=== PATIENT | female | born 1945 | race Two or more races ===

== ENCOUNTER 2017-01-03 16:24 | Inpatient (IN) | payer OTHER ==
[~2017-01-03] VITALS: Ht 160 cm; Wt 63.0 kg
--- NOTE | ~2017-01-03 | EKG ---
PATIENT: SHANDA HENSON UNIT #: [id number] Ventricular Rate: 93 BPM Atrial Rate: 101 BPM QRS Duration: 142 ms Q-T Interval: 388 ms QTC Calculation(Bezet): 482 ms Calculated R Roosevelt: 72 degrees Calculated T Roosevelt: -53 degrees Diagnosis Line: Atrial fibrillation Diagnosis Line: Right bundle branch block Diagnosis Line: T wave abnormality, consider inferior ischemia or Diagnosis Line: digitalis effect Diagnosis Line: Abnormal ECG Diagnosis Line: No previous ECGs available Diagnosis Line: Confirmed by TAYLOR HARRIS MD ([id number]) on 01/07/2017 Diagnosis Line: 10:49:31 PM INTERPRETING MD: STEVEN NOVOA
--- NOTE | ~2017-01-03 | TH ---
Unit #: [id number] #: [id number] Patient: SHANDA HENSON [id number] [address] [id number] I MR#: [id number] NAME: SHANDA HENSON : 1945 SEX: F STUDY DATE/TIME: 01/06/2017 UNIT: [facility] ROOM: 565 STUDY DESCRIPTION: Attending Physician: Raymundo Dubois M.D. Primary Care Physician: Bakari Cook M.D. CARDIOLOGY REPORT EXAM Lexiscan Cardiolite stress test, nuclear portion. PROCEDURE Using technetium 99m labeled Cardiolite, rest and stress SPECT images were obtained. Multiple SPECT images were obtained in various views including horizontal and vertical long axis and short axis views of the left ventricle. Images were obtained by gated SPECT method. The patient was administered 10.74 mCi of Cardiolite at rest. The patient was administered 34.3 mCi of Cardiolite after Lexiscan infusion was completed. On the stress images, there is normal perfusion noted. The rest images show normal perfusion. Comparing rest and stress images, there is no stress-induced ischemia noted. The left ventricular ejection fraction is calculated to be 54%. There is no focal wall motion abnormality seen. CONCLUSION 1. No stress-induced ischemia noted. 2. The left ventricular ejection fraction is calculated to be 54%. 3. There is no focal wall motion abnormality seen. 4. Normal Lexiscan Cardiolite stress test. Dictated by... Kolby Fitzgerald TD: 01/06/2017 15:29 JOB #: [id number] CARDIOLOGY REPORT Page 1 of 1 X Kelsea Avina MD <ELECTRONICALLY SIGNED> 02/20/17 1524 CARDIOLOGY REPORT
--- NOTE | ~2017-01-03 | CR72 ---
[facility] A Service of [facility] RADIOLOGY TEXT RESULTS PATIENT: SHANDA HENSON LOCATION: [facility] 565-01 : 43 UNIT #: [id number] AGE: [address]: Raymundo Dubois MD SEX: F ORDER DR: [id number] [facility] [address] [place], [place] [address] [id number] I MR#: [id number] Acc #: [id number] NAME: SHANDA HENSON : 1945 SEX: F STUDY DATE/TIME: 01/03/2017 UNIT: [facility] ROOM: [facility] STUDY DESCRIPTION: CR Chest Single View Portable Attending Physician: Ollie Freitas M.D. Ordering Physician: Hannah Badillo M.D. Primary Care Physician: Bakari Cook M.D. MEDICAL IMAGING REPORT This report is preliminary unless electronic signature is present EXAM Portable chest 01/03/17 at 17:53 INDICATIONS Shortness of air, cough and chest pain that started 2.5 weeks ago. History of hypertension. TECHNIQUE AP portable chest compared with 01/03/2017 at 13:28 hours. FINDINGS Left subclavian vascular stent remains in place. Cardiomegaly stable. There is some continued mild vascular congestion. The lungs remain clear. No pneumothorax. IMPRESSION Stable cardiomegaly with mild vascular congestion. No change from earlier today. Dictated by... Jw Dias Jr., M.D. THIS IS AN ELECTRONICALLY VERIFIED REPORT Jw Dias Jr., M.D. at 01/04/2017 4:12 PM BRUCE/justin TD: 01/03/2017 23:28 JOB #: [id number] MEDICAL IMAGING REPORT Page 1 of 1 COPY
--- NOTE | ~2017-01-03 | ST ---
Unit #: [id number] #: [id number] Patient: SHANDA HENSON [id number] [facility]. [place] [address] [facility]. [place], [place] [address] [id number] I MR#: [id number] NAME: SHANDA HENSON : 1945 SEX: F STUDY DATE/TIME: 01/06/2017 UNIT: [facility] ROOM: 565 STUDY DESCRIPTION: Attending Physician: Raymundo Dubois M.D. Primary Care Physician: Bakari Cook M.D. CARDIOLOGY REPORT EXAM Lexiscan Cardiolite stress test. FINDINGS Baseline EKG: Atrial fibrillation with controlled ventricular rate 93 beats per minute with a right bundle branch block, poor R-wave progression, some nonspecific ST-T wave abnormalities. PROCEDURE Cardiolite is a 4-minute test with Lexiscan being injected within the first minute. EKG during the test was equivocal to baseline. It did show a rare PVC. Maximum heart rate response was 121 beats per minute with a maximum blood pressure response of 125/75 mmHg. Patient had no complaints of chest pain, palpitations, or dizziness. Had increased shortness of breath and fatigueness which resolved in recovery phase. Cardiolite was injected after Lexiscan within the first minute of the test. Radionuclide test pending. Please correlate with nuclear images. Dictated by... Joy Durant A.P.R.N. for Kolby Fitzgerald/rica TD: 01/06/2017 10:11 JOB #: [id number] CARDIOLOGY REPORT Page 1 of 1 X Joy Durant APRN CARDIOLOGY REPORT
--- NOTE | ~2017-01-03 | CO ---
Unit #: [id number] #: [id number] Patient: MARY HENSON [id number] [id number] [facility]. [place], [place] [address] [id number] I MR#: [id number] NAME: MARY HENSON ROOM: 565 Age: 71 Sex: F Admission Date: 01/03/2017 : 1945 Attending Physician: Raymundo Dubois M.D. Primary Care Physician: Bakari Cook M.D. Consultation Date: 01/04/2017 CONSULTATION REPORT REASON FOR CONSULTATION Management of the atrial fibrillation with rapid ventricular response, chest pain, and congestive heart failure. HISTORY OF PRESENT ILLNESS This is a 71-year-old female from [facility], who is on end-stage renal disease, on hemodialysis. She is a diabetic, hypertension and hyperlipidemia, history of anemia, glaucoma, previous stroke about 4 years ago and also admits to being told she had irregular heartbeats sometime. The patient came into the emergency room after instructed by Dr. Cook, her PCP for worsening shortness of breath, cough, generalized malaise, and fatigue. The patient has been back from the [facility] 3 weeks. She visited family over there and was there for about 3 weeks. She was sent to [facility] last weekend for chest congestion and persistent cough. She says she cannot stop coughing. She says she may have occasional fever and chills, but on her initial return from home, she did have some vomiting and diarrhea, but she said that has been gone for over a week. She has some chest tightness when she coughs, because she has bronchospasms. She denies any chest pain radiates into her neck, bilateral jaws, shoulders, arms or elbow. She does have occasional palpitations, but no dizziness, presyncope, or syncope. She says she does not have to sleep up in a chair. She can sleep in a bed with two pillows. According to the patient, she went to see Dr. Cook yesterday to follow up in the clinic, but she says she does not feel any better from the treatment [facility]. She said that he did a chest x-ray and sent her home and after he seeing the chest x-ray, he wanted to put her in the hospital. The chest x-ray showed some mild vascular congestion, cardiomegaly, left subclavian vascular stent is in place and the lungs are clear. No pneumothorax. As far as her heart, the patient says she may have had a stress test a few years ago and told it was normal. As far as now, she does not have any heart problems except she said she thought Dr. Cook knew she had heartbeat a few years ago, but she has never been on any blood thinner to her knowledge. PAST MEDICAL HISTORY 1. End-stage renal disease, on hemodialysis. 2. Diabetes mellitus, type 2. 3. Hypertension. 4. Hyperlipidemia. 5. History of anemia. 6. Glaucoma. 7. History of stroke 4 years ago with minimal residual. 8. Reports that she may have paroxysmal atrial fibrillation in the past, Unit #: [id number] #: [id number] Patient: MARY HENSON but she has never been on a blood thinner. 9. Stress test according to the patient a few years back and told was normal. PAST SURGICAL HISTORY 1. Surgery on her left eye for glaucoma. 2. Fistula placed in her right arm. 3. Left brachiocephalic stent. HOME MEDICATIONS Lantus 16 units subcu at bedtime, Humalog 4 units subcu with meals, Xalatan one drop right eye at bedtime, dosage and frequency unavailable, Cozaar 100 mg p.o. daily, metoprolol 50 mg p.o. b.i.d., amlodipine 10 mg p.o. daily, simvastatin 40 mg p.o. daily, Lasix 40 mg p.o. daily, prednisone 5 mg every other day, Sensipar 60 mg p.o. daily, guaifenesin with dextromethorphan t.i.d. p.r.n. for cough. ALLERGIES No known drug allergies. SOCIAL HISTORY The patient lives with her daughter. She denies tobacco, alcohol, or illicit drug abuse. She ambulates with a cane. FAMILY HISTORY Noncontributory. REVIEW OF SYSTEMS See details in HPI. PHYSICAL EXAMINATION GENERAL: Ms. Mary Henson is a 71-year-old female, in no acute respiratory distress. She does have a thick persistent cough. VITAL SIGNS: Blood pressure is currently 136/72, heart rate is 102, respirations 18, temperature 97.6, O2 sats 97% to 100% on 2 L. NECK: Trachea is midline. No thyromegaly or lymphadenopathy. Normal carotid upstrokes. No jugular venous distention. HEART: S1 and S2. Irregular rate and rhythm. Soft systolic murmur at the left sternal border. LUNGS: Diminished in the bases with scattered rhonchi in upper airways. ABDOMEN: Slightly obese, soft, nontender. EXTREMITIES: Pedal pulses are palpable. No pedal edema. DIAGNOSTIC STUDIES LABORATORY RESULTS: Glucose is 231, BUN 45, creatinine 6.6, eGFR is 5.7. Sodium 139, potassium 3.7, chloride 98, CO2 of 29, calcium is 8.1, total protein 7.6, albumin 3.6, bilirubin total is 0.5. AST 19, ALT 25, alkaline phosphatase is 452. BNP is 3197. WBC is 9.0, hemoglobin 10.7, hematocrit 33.3, platelets is 277. Initial cardiac enzymes; CK-MB is 1.3, troponin less than 0.03. CK-MB is 1.3, troponin less than 0.03. INR is 1.4. IMAGING STUDIES: Chest x-ray shows cardiomegaly and suspected mild vascular congestion. CT of the chest with contrast shows no pulmonary embolism. Lungs are clear. 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 CARDIOVASCULAR STUDIES: EKG shows atrial fibrillation with rapid ventricular response with a right bundle-branch block, and nonspecific ST-T wave abnormalities in inferolateral leads. T-wave inversion in inferior and anterior leads. IMPRESSION 1. Atrial fibrillation with rapid ventricular response questionable onset. 2. Acute bronchitis, upper respiratory infection. 3. Acute diastolic heart failure, fluid overload. 4. End-stage renal disease, on hemodialysis. 5. Diabetes mellitus, type 2. 6. Hypertension. 7. Hyperlipidemia. 8. History of anemia. 9. Previous stroke. 10. Stress test few years ago. According to the patient, told was normal. 11. Glaucoma. 12. Nonsmoker. PLAN 1. Cardiology consult to assist with evaluation and management. 2. The patient's heart rate is fluctuating, but staying mostly in the 90s and low 100s. We will increase her metoprolol to 75 mg p.o. b.i.d. Monitor blood pressure and heart rate closely and make any adjustments needed. 3. Obtain a fasting lipid profile and TSH and evaluate. 4. Obtain a 2D echo to evaluate LV function and valves. I do not have any documentation of the echo. We will try to obtain records from [facility] when she had her stroke to see if she was in atrial fibrillation at that time. 5. Continue the patient on aspirin and also we will put on Lovenox 1 mg/kg subcu daily that is the therapeutic dose. 6. The patient will need ischemic heart disease workup at sometime maybe after her symptoms improved. 7. Hospitalist is managing her upper respiratory infection. She is going to get nebulizer treatments along with some IV steroids and cough medication. 8. On exam, there are no signs or symptoms. She did have some chest tightness, so there is no indication of any angina. She does not appear to be on any acute congestive heart failure, even though her BNP is elevated. The patient will have dialysis today. 9. To remove the fluid overload. 10. Further recommendations pending per Dr. Avina. 11. She ambulates with a cane. She thinks she does a lot for age. Quit smoking. Thank you very much for allowing us to assist in care. Dictated by... Bill Prakash/walter TD: 01/04/2017 14:04 JOB #: [id number] CC: Bakari Cook M.D. Unit #: [id number] #: [id number] Patient: MARY HENSON CONSULTATION REPORT Page 1 of 1 X Joy Durant APRN CONSULTATION REPORT
--- NOTE | ~2017-01-03 | CT16 ---
[facility] A Service of [facility] & [facility] RADIOLOGY TEXT RESULTS PATIENT: SHANDA HENSON LOCATION: [facility] 565-01 : 43 UNIT #: [id number] AGE: [address]: Raymundo Dubois MD SEX: F ORDER DR: [id number] [facility] [address] [place], [place] [address] [id number] I MR#: [id number] Acc #: [id number] NAME: SHANDA HENSON : 1945 SEX: F STUDY DATE/TIME: 01/03/2017 19:54 UNIT: [facility] ROOM: [facility] STUDY DESCRIPTION: CT Angio Chest for PE Attending Physician: Ollie Freitas M.D. Ordering Physician: Hannah Badillo M.D. Primary Care Physician: Bakari Cook M.D. MEDICAL IMAGING REPORT This report is preliminary unless electronic signature is present EXAM Chest CTA 01/03 19:54 INDICATIONS Shortness of air with exertion that started 12/22/2016 with some associated body aches. TECHNIQUE Axial images were obtained through the chest following IV contrast administration. 3-D reformats were obtained. Comparison is made with 06/04/2014. This CT exam was performed with one or more of the following radiation dose reduction techniques: automatic control, adjustment of mA and/or kV according to patient size, and iterative reconstruction. FINDINGS No pulmonary embolism is identified. The aortic lumen is poorly opacified and therefore not evaluated. Patient is injected in the left upper extremity. There is extensive left side chest wall collateralization and I suspect that the left subclavian vein is chronically occluded. There is a brachiocephalic stent in place. This is unopacified. Heart is enlarged. No pleural or pericardial effusion. Mitral annulus calcifications are present. No adenopathy. The lungs are clear. upper abdomen shows atherosclerotic disease and bilateral renal atrophy. There is diffuse increased density in the bones which is presumably the result of renal osteodystrophy. There are multiple thoracic compression deformities and there is extensive degenerative endplate change. All of these findings are significantly worsened since the prior chest CT. The spine could be better evaluated with a non emergent MRI if clinically indicated. IMPRESSION 1. No pulmonary embolism. The aortic lumen is poorly opacified and therefore not well evaluated. [facility] A Service of [facility] RADIOLOGY TEXT RESULTS PATIENT: SHANDA HENSON LOCATION: [facility] 565-01 : 43 UNIT #: [id number] AGE: [address]: Raymundo Dubois MD SEX: F ORDER DR: 2. Lungs are clear. 3. Cardiomegaly. 4. 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 5. 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 Progression of what appears to be extensive degenerative disease in the thoracic spine with some mild compression fractures. The spine would be better assessed with non emergent thoracic MRI if clinically indicated. Dictated by... Jw Dias Jr., M.D. THIS IS AN ELECTRONICALLY VERIFIED REPORT Jw Dias Jr., M.D. at 01/04/2017 4:13 PM BRUCE/afia TD: 01/04/2017 00:33 JOB #: [id number] MEDICAL IMAGING REPORT Page 1 of 1 COPY
--- NOTE | ~2017-01-03 | MR176 ---
[facility] A Service of [facility] RADIOLOGY TEXT RESULTS PATIENT: SHANDA HENSON LOCATION: [facility] [id number] : 43 UNIT #: [id number] AGE: [address]: Raymundo Dubois MD SEX: F ORDER DR: [id number] [facility] [address] [place], [place] [address] [id number] I MR#: [id number] Acc #: [id number] NAME: SHANDA HENSON : 1945 SEX: F STUDY DATE/TIME: 01/05/2017 9:14 UNIT: [facility] ROOM: [facility] STUDY DESCRIPTION: MR Thoracic Wo Contrast Attending Physician: Raymundo Dubois M.D. Ordering Physician: Raymundo Dubois M.D. Primary Care Physician: Bakari Cook M.D. MRI CENTER REPORT This report is preliminary unless electronic signature is present. EXAM Thoracic spine without contrast INDICATIONS Chronic mid-back pain for the past 5-10 years. Thoracic compression fracture. PROCEDURE Sagittal and axial T1 and T2 weighted imaging of the thoracic spine. COMPARISON CTA chest from 01/03/2017. FINDINGS There is mild multilevel degenerative disc disease. No significant central canal narrowing or abnormal thoracic cord signal. There is mild levocurvature of the upper thoracic spine. There is mild height loss along the inferior endplate of T11 with mild associated edema. No retropulsion. No abnormal paravertebral mass. IMPRESSION 1. Mild acute early subacute inferior endplate compression deformity of T11. There is no acute change in the alignment. Only minimal loss of vertebral body height with no significant retropulsion. 2. Next, degenerative change throughout the thoracic spine with mild levocurvature of the upper thoracic spine. 3. Thoracic cord has normal caliber and signal intensity. Dictated by... Morris Chacko M.D. THIS IS AN ELECTRONICALLY VERIFIED REPORT [facility] A Service [facility] RADIOLOGY TEXT RESULTS PATIENT: SHANDA HENSON LOCATION: [facility] 565-01 : 43 UNIT #: [id number] AGE: [address]: Raymundo Dubois MD SEX: F ORDER DR: Morris Chacko M.D. at 01/06/2017 8:15 AM QUENTIN/justin TD: 01/05/2017 10:22 JOB #: [id number] MRI CENTER REPORT Page 1 of 1 COPY
--- NOTE | ~2017-01-03 | EKG ---
PATIENT: SHANDA HENSON UNIT #: [id number] Ventricular Rate: 95 BPM Atrial Rate: 119 BPM QRS Duration: 140 ms Q-T Interval: 390 ms QTC Calculation(Bezet): 490 ms Calculated R Slinger: 65 degrees Calculated T Slinger: -47 degrees Diagnosis Line: Atrial fibrillation Diagnosis Line: Right bundle branch block Diagnosis Line: T wave abnormality, consider inferior ischemia or Diagnosis Line: digitalis effect Diagnosis Line: Abnormal ECG Diagnosis Line: When compared with ECG of 03-JAN-2017 17:44, Diagnosis Line: No significant change was found Diagnosis Line: Confirmed by TAYLOR HARRIS MD ([id number]) on 01/07/2017 Diagnosis Line: 6:56:25 AM INTERPRETING MD: STEVEN NOVOA
--- NOTE | ~2017-01-03 | DS ---
Unit #: [id number] #: [id number] Patient: SHANDA HENSON [id number] [address] [id number] I MR#: [id number] NAME: SHANDA HENSON ROOM: [facility] Age: 71 Sex: F Admission Date: 01/03/2017 : 1945 Discharge Date: 01/07/2017 Attending Physician: Raymundo Dubois M.D. Primary Care Physician: Bakari Cook M.D. DISCHARGE SUMMARY ADDENDUM Please note additional medications: Coumadin 2 mg p.o. nightly. Dictated by... Kolby Wild/rica TD: 01/10/2017 09:20 JOB #: [id number] DISCHARGE SUMMARY Page 1 of 1 X Raymundo Dubois MD X DISCHARGE SUMMARY
--- NOTE | ~2017-01-03 | HP ---
Unit #: [id number] #: [id number] Patient: SHANDA HENSON [id number] [facility]. [place], [place] [address] [id number] I MR#: [id number] NAME: SHANDA HENSON ROOM: 565 Age: 71 Sex: F Admission Date: 01/03/2017 : 1945 Attending Physician: Raymundo Dubois M.D. Primary Care Physician: Bakari Cook M.D. HISTORY AND PHYSICAL CHIEF COMPLAINT Shortness of breath DISCUSSION This is a 71-year-old female, with a past medical history significant for history of end-stage renal disease, on hemodialysis, diabetes, noninsulin dependent, hypertension, dyslipidemia, history of glaucoma. She was recently in the [facility] and she said in the [facility] she developed some shortness of breath and cough, and then she came back here in the [facility] on the . She went to see [facility] on of last month. She was given some prednisone and cough syrup, and she said she had been getting hemodialysis on , , also she got hemodialysis yesterday with worsening symptoms, shortness of breath. She went to see her primary care physician office today, Dr. Cook, and chest x-ray was done was found to be in volume overload, and she was sent to the emergency room, and she was also found to be atrial fibrillation in the primary care physician's office. In the emergency room, on EKG, she was found in atrial fibrillation. Initially it was 111 but now is being controlled though she denies any history of atrial fibrillation. Her daughter is available at the bedside. She denies fever, chills. She has been having some shortness of breath and cough, she denies any loss of consciousness or any other complaint. PAST MEDICAL HISTORY 1. History of end-stage renal disease on hemodialysis. 2. Diabetes on insulin. 3. Hypertension. 4. Dyslipidemia. 5. History of glaucoma. PAST SURGICAL HISTORY 1. History of left eye surgery. 2. History of fistula in the left arm in the past, now she has fistula in the right arm. 3. History of left (1) cephalic stent. 4. History of tubal ligation in the past. SOCIAL HISTORY She does not smoke. She does not drink alcohol. No illicit drug use. FAMILY HISTORY Noncontributory to pertinent complaint and has been reviewed. ALLERGIES Unit #: [id number] #: [id number] Patient: SHANDA HENSON No known drug allergies. MEDICATIONS FROM HOME Is the followin. Lantus 16 units at bedtime 2. Humalog four units with meals 3. Xalatan eye drops at bedtime 4. Renvela three times daily 5. Cozaar 100 mg daily 6. Lopressor 50 mg twice a day 7. Amlodipine 10 mg daily 8. Simvastatin 40 mg daily 9. Lasix 40 mg daily 10. Prednisone tapering dose which her last day is tomorrow 11. Sensipar 60 mg daily 12. Tussin DM three times daily p.r.n. REVIEW OF SYSTEMS Negative except as in history of present illness. PHYSICAL EXAMINATION GENERAL: Elderly female lying in the bed comfortably, currently not in any distress. She is alert, awake, and oriented x3, comfortable, not in any distress. VITAL SIGNS: Current vitals are following, temperature 98.9, heart rate 66, respiratory rate 16, and blood pressure 135/103. Oxygen 98% on room air. HEENT EXAMINATION: Pupils equal reactive to light and accommodation. Head: Normocephalic and atraumatic. NECK: Supple. No jugular venous distention. HEART: S1 and S2, regular rhythm. LUNGS: Decreased air entry but no rhonchi, no wheezing. ABDOMEN: Soft, nontender, and nondistended. Bowel sounds are positive. EXTREMITIES: Inspection normal. No cyanosis, clubbing, or edema. NEUROLOGIC: She is alert and oriented x3. Cranial nerves II through XII intact, moving all extremities, power 5/5. PSYCH: Normal mood and affect. SKIN: Warm and dry. DIAGNOSTIC STUDIES LABORATORY: Laboratory workup is the following, her troponin is 0.05 and BNP 3,197. Sodium 139, potassium 3.7, chloride 98, glucose 231, BUN 45, creatinine 6.6. LFT within normal limits. INR is 1.2. White count 9, hemoglobin 10, hematocrit 33, platelets is 277. Troponin less than 0.05. IMAGING: Chest x-ray shows cardiomegaly and suspected mild vascular congestion. CARDIOVASCULAR: EKG shows atrial fibrillation with rapid ventricular rate 111. ASSESSMENT/PLAN 1. New onset atrial fibrillation currently rate is controlled, she is already on metoprolol, replace given one dose of Lovenox today, ask cardiology to evaluate, further recommendations anticoagulation as per cardiology. 2. End-stage renal disease with volume overload, she had dialysis yesterday, still she is in volume overload, she is on dialysis will Unit #: [id number] #: [id number] Patient: SHANDA HENSON ask nephrology to evaluate. 3. Diabetes, continue Lantus and Humalog, place on sliding scale. 4. Hypertension. 5. End-stage renal hemodialysis. 6. Dyslipidemia. 7. Glaucoma. 8. DVT prophylaxis on Lovenox. Dictated by Donato Burr M.D. LEONORA/damian TD: 01/04/2017 11:42 JOB #: [id number] HISTORY AND PHYSICAL Page 1 of 1 X X HISTORY AND PHYSICAL
--- NOTE | ~2017-01-03 | DS ---
Unit #: [id number] #: [id number] Patient: SHANDA HENSON [id number] [place], [place] [address] [id number] I MR#: [id number] NAME: SHANDA HENSON ROOM: 56 Age: 71 Sex: F Admission Date: 01/03/2017 : 1945 Discharge Date: 01/07/2017 Attending Physician: Raymundo Dubois M.D. Primary Care Physician: Bakari Cook M.D. DISCHARGE SUMMARY REASON FOR ADMISSION Dyspnea. HISTORY OF PRESENT ILLNESS/HOSPITAL COURSE The patient is a 71-year-old female with underlying history of end-stage renal disease on hemodialysis, diabetes noninsulin-dependent, hypertension, hyperlipidemia, who presented secondary to shortness of breath, as well as, increased cough and congestion. She apparently had been seen at an immediate care center at an outside facility and was given prednisone, cough medication. She did not show any improvement. She went to see her primary care physician who found on chest x-ray to be volume overloaded and was subsequently sent to the emergency room. While evaluated in the emergency room, she was noted to be in atrial fibrillation and subsequently was admitted for the same. She was admitted, placed on telemetry floor. She underwent a CT angiogram chest PE protocol secondary to shortness of breath as well as recent travel. There was no acute pulmonary embolism which was noted. 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 There was also questionable compression fracture within the thoracic spine. Secondary to atrial fibrillation, this prompted a consultation to cardiology services. Dr. Avina and associates saw and evaluated patient. Patient ultimately underwent Lexiscan Cardiolite stress test. Nuclear imaging was obtained. There was no stress-induced ischemia which was noted. Ejection fraction was calculated to be 54%. No focal wall abnormalities were noted. Please see below for appropriate medications at time of discharge as per recommendations by cardiology. It should be noted patient's INR at time of discharge was 1.9 as she has been started on Coumadin while here. Secondary to her longstanding history of end-stage renal disease, consultation was placed to nephrology services. She underwent hemodialysis as per routine. Secondary to prior CTA angiogram chest being performed and showing questionable compression abnormalities within the thoracic spine, the patient underwent MRI thoracic spine which did show a mild acute to subacute inferior endplate compression deformity of T11. There was no acute change in the alignment; however, minimal loss of vertebral body was noted. Unit #: [id number] #: [id number] Patient: SHANDA HENSON The patient did complain of cough as well as congestion on day of admission as well. She was treated for acute bronchitis with IV Solu-Medrol as well as IV doxycycline. Her doxycycline will be transitioned to p.o. at time of discharge for an additional five days, and she will be given additional prednisone 40 mg p.o. daily x5 days secondary to her acute bronchitis. Her medications have been reviewed and adjusted by both nephrology as well as cardiology services, and patient is clinically stable for discharge home. FINAL DISCHARGE DIAGNOSES 1. Dyspnea, multifactorial. 2. Volume overload. 3. End-stage renal disease on hemodialysis. 4. Atrial fibrillation, new diagnosis. 5. Chronic anticoagulation now with Coumadin. 6. Diabetes, noninsulin dependent. 7. Hypertension. 8. Hyperlipidemia. 9. Prior history of glaucoma. 10. Acute bronchitis. FINAL DISCHARGE MEDICATIONS 1. Lasix 40 mg p.o. daily. 2. Simvastatin 40 mg p.o. daily. 3. Cozaar 25 mg p.o. daily. 4. Lantus 16 units subcutaneous nightly. 5. Humalog 4 units t.i.d. with meals. 6. Lopressor 75 mg p.o. b.i.d. 7. Prednisone 40 mg p.o. daily x5 days. 8. Doxycycline 100 mg p.o. b.i.d. x5 days. 9. Renvela 800 mg p.o. t.i.d. with meals. 10. Aspirin 81 mg p.o. daily. 11. Sensipar 60 mg p.o. daily. DISCHARGE CONDITION Stable. DISCHARGE DISPOSITION Home. FOLLOWUP Followup PCP in 7-10 days. [facility] services to follow at time of discharge. Dictated by... Raymundo Dubois M.D. DERRELL/rica TD: 01/10/2017 09:00 JOB #: [id number] Unit #: [id number] #: [id number] Patient: SHANDA HENSON LC DISCHARGE SUMMARY Page 1 of 1 X Raymundo Dubois MD X DISCHARGE SUMMARY
--- NOTE | ~2017-01-03 | CO ---
Unit #: [id number] #: [id number] Patient: SHANDA HENSON [id number] [facility]. [place], [place] [address] [id number] I MR#: [id number] NAME: SHANDA HENSON ROOM: 565 Age: 71 Sex: F Admission Date: 01/03/2017 : 1945 Attending Physician: Raymundo Dubois M.D. Primary Care Physician: Bakari Cook M.D. CONSULTATION REPORT JOB NOTE: REASON FOR CONSULTATION End-stage renal disease. HISTORY OF PRESENT ILLNESS This is a 71-year-old female with known end-stage renal disease. She gets dialysis at [facility] on a Friday, , Friday basis. Her dose was on 01/02/2017 with no issues. At that time, she had her fluid removed down to dry weight and did well. She has, however, returned home. She presented to the [facility] ER yesterday complaining of chest pain. She described the pain as a discomfort in her mid sternal area that had lasted for 2 to 3 days. It had come on gradually and slowly worsened. It was not made better with rest and was not worsened with activity and it does not radiate. It was associated with heart palpitations and a cough. She states that the cough began 3 days ago and does not have any associated fever. She does have shortness of breath which is mild at rest and worse with exertion. Since being here, her blood pressure is meeting goal. She has just got diagnosed with new onset AFib. She was started on beta-laurie. Her heart rate has improved. She is now on Lovenox. PAST MEDICAL HISTORY 1. End-stage renal disease. 2. Diabetes. 3. History of AV fistula placement. 4. Anemia of chronic disease. 5. Metabolic bone disease. 6. Hypophosphatemia. 7. Hypertension. 8. Hyperlipidemia. SOCIAL HISTORY She has never smoked. She denies any illicit drug use. FAMILY HISTORY Negative for any early onset coronary artery disease or malignancies. ALLERGIES She has no known drug allergies. HOME MEDICATIONS Losartan, metoprolol, Norvasc, Lasix, Lipitor, and Sensipar. Unit #: [id number] #: [id number] Patient: SHANDA HENSON REVIEW OF SYSTEMS No fevers, chills, or night sweats. No syncope or seizure like activity. No changes in appetite or weight. No abdominal pain, nausea, vomiting, diarrhea, melena, bright red blood per rectum. No dysuria, urgency, hesitancy, or frequency. No new rashes. No edema. PHYSICAL EXAMINATION VITAL SIGNS: Blood pressure is 136/72, heart rate of 106, respiratory rate 22. She is afebrile. GENERAL: She is alert. She is sleeping, but easily aroused. She is in no acute distress. Participates in conversation. HEENT: Extraocular movements are intact with no scleral icterus. NECK: She has no JVD with a supple neck with no masses. HEART: Shows irregular rhythm. Slightly tachycardic. LUNGS: Coarse throughout with mild diminished sounds in the bases. No rales, rhonchi, or wheezes are appreciated. ABDOMEN: Soft, nontender, nondistended with normal bowel sounds. EXTREMITIES: Warm to touch with no rashes and no edema. DIAGNOSTIC STUDIES LABORATORY RESULTS: Reviewed. Potassium is 3.9, sodium is 139, bicarb is 29, BUN is 45, creatinine is 6.6, calcium 8.1. Troponin is 0.06. White count is 9, hemoglobin is 10.7, platelets are 277. IMAGING STUDIES: CT chest with dye is reviewed, it is negative for any PE. Chest x-ray shows some mild cardiomegaly suggestive of overload with increased vascularity of the pulmonary vessels. ASSESSMENT 1. End-stage renal disease. 2. Chest pain. 3. New onset atrial fibrillation. 4. Congestive heart failure. 5. Overload. 6. Cough. 7. Anemia of chronic disease. 8. Metabolic bone disease. 9. Fracture of the thoracic spine. DISCUSSION AND PLAN She will undergo dialysis today. We will ultrafiltrate as her blood pressure allows and try to get her back to . Cardiology is seeing her. She is receiving rate control with the beta-laurie and is now anticoagulated with Lovenox. MRI of the back will be done to further evaluate the spine fracture. She has been started on steroids per the primary for her coughs and likely bronchitis. Thank you kindly for this referral. It is my pleasure to stay in the care of Ms. Henson. Please feel free to call me with any questions or concerns regarding her renal issues. Dictated by... Radha Srinivasan M.D. CAROLYNE/walter TD: 01/05/2017 02:40 Unit #: [id number] #: [id number] Patient: SHANDA HENSON JOB #: [id number] CONSULTATION REPORT Page 1 of 1 X Radha Srinivasan MD X CONSULTATION REPORT
--- NOTE | ~2017-01-03 | EKG ---
PATIENT: SHANDA HENSON UNIT #: [id number] Ventricular Rate: 111 BPM Atrial Rate: 115 BPM QRS Duration: 138 ms Q-T Interval: 376 ms QTC Calculation(Bezet): 511 ms Calculated R Irving: 77 degrees Calculated T Irving: -51 degrees Diagnosis Line: Atrial fibrillation with rapid ventricular Diagnosis Line: response Diagnosis Line: Right bundle branch block Diagnosis Line: T wave abnormality, consider inferior ischemia Diagnosis Line: Abnormal ECG Diagnosis Line: When compared with ECG of 04-MAY-2012 19:48, Diagnosis Line: Atrial fibrillation has replaced Sinus rhythm Diagnosis Line: T wave inversion now evident in Inferior leads Diagnosis Line: T wave inversion now evident in Anterior leads Diagnosis Line: Confirmed by TAYLOR HARRIS MD ([id number]) on 01/04/2017 Diagnosis Line: 8:42:30 AM INTERPRETING MD: STEVEN NOVOA
--- NOTE | ~2017-01-03 | EKG ---
PATIENT: SHANDA HENSON UNIT #: [id number] Ventricular Rate: 83 BPM Atrial Rate: 89 BPM QRS Duration: 144 ms Q-T Interval: 396 ms QTC Calculation(Bezet): 465 ms Calculated R Vidor: 56 degrees Calculated T Vidor: -37 degrees Diagnosis Line: Atrial fibrillation Diagnosis Line: Right bundle branch block Diagnosis Line: T wave abnormality, consider inferior ischemia or Diagnosis Line: digitalis effect Diagnosis Line: Abnormal ECG Diagnosis Line: When compared with ECG of 05-JAN-2017 07:55, Diagnosis Line: (unconfirmed) Diagnosis Line: No significant change was found Diagnosis Line: Confirmed by TAYLOR HARRIS MD ([id number]) on 01/07/2017 Diagnosis Line: 11:33:36 PM INTERPRETING MD: STEVEN NOVOA
[~2017-01-03 16:24] MED LIST changes: -ADULT WAL-TUSS118 M1; -COUMADIN1 MG PO; -COZAAR25 MG PO; -DOXYCYCLINE HY100 M3 PO; -HUMALOG100 UNIT/2 SUBQ; -LEVEMIR100 UNITS/ SUBQ; -PREDNISONE10 MG PO; -RENVELA800 MG PO; -XALATAN OD
[2017-01-03] MEDS ORDERED: LANTUS100 UNITS/ SUBQ (16:31)
[2017-01-03] MEDS ORDERED: HUMALOG100 UNIT/2 SUBQ (16:31)
[2017-01-03] MEDS ORDERED: RENVELA800 MG PO (16:32)
[2017-01-03] MEDS ORDERED: COZAAR25 MG PO (16:32)
[2017-01-03] MEDS ORDERED: XALATAN OD (16:32)
[2017-01-03] MEDS ORDERED: SIMVASTATIN40 MG PO (16:33)
[2017-01-03] MEDS ORDERED: LOPRESSOR PO (16:33)
[2017-01-03] MEDS ORDERED: AMLODIPINE BESY10 MG PO (16:33)
[2017-01-03] MEDS ORDERED: ADULT WAL-TUSS118 M1 (16:34)
[2017-01-03] MEDS ORDERED: LASIX PO (16:34)
[2017-01-03] MEDS ORDERED: PREDNISONE10 MG PO (16:34)
[2017-01-03] MEDS ORDERED: SENSIPAR60 MG PO (16:34)
[2017-01-03 18:13] LABS: POC - CKMB 1.3 ng/mL (0.0-7.9); POC - TROPONIN <0.05 ng/mL (<=0.05)
[2017-01-03 18:18] LABS: BASOPHIL# 0.1 X10e3 (0-0.3); BASOPHIL% 0.6 % (0-2.5); DIFF IND NO; EOSINOPHIL# 0.1 X10e3 (0-0.7); EOSINOPHIL% 0.7 % (0.0-7.0); HEMATOCRIT 33.3 % (35.0-45.0); HEMOGLOBIN 10.7 gm/dL (12.0-16.0); LYMPHOCYTE# 0.7 X10e3 (1.0-3.5); LYMPHOCYTE% 7.2 % (17.0-45.0); MEAN CELL VOLUME 95.4 FL (83-96); MEAN CORPUSCULAR HEMOGLOBIN 30.5 PG (28-34); MEAN PLATELET VOLUME 7.9 FL (6.5-11.5); MONOCYTE# 0.6 X10e3 (0-1.0); MONOCYTE% 6.3 % (3.0-12.0); NEUTROPHIL# 7.7 X10e3 (1.5-7.1); NEUTROPHIL% 85.2 % (40-75); PLATELET COUNT 277 X10e3 (140-420); RED BLOOD COUNT 3.49 X10e (3.90-5.30); RED CELL DISTRIBUTION WIDTH 14.5 % (11.0-15.5)
[2017-01-03 18:23] LABS: INR 1.2; PROTHROMBIN TIME (PATIENT) 13.5 SECONDS (10.0-11.7)
[2017-01-03 18:32] LABS: ALBUMIN SERUM 3.6 g/dL (3.5-5.0); BILIRUBIN, DIRECT 0.1 mg/dL (0.0-0.2); BILIRUBIN,INDIRECT 0.4 mg/dL (0.0-0.9); BILIRUBIN,TOTAL 0.5 mg/dL (0.2-2.0); BUN/CREATININE RATIO 6.81; CALCIUM SERUM 8.1 mg/dL (8.4-10.2); CREATININE SERUM 6.6 mg/dL (0.6-1.4); GLOM FILT RATE Estimated 5.7 mL/min (>60); POTASSIUM 3.7 mmol/L (3.5-5.1); PROTEIN TOTAL SERUM 7.6 g/dL (6.0-8.3)
[2017-01-03 19:23] LABS: POC - CKMB 1.3 ng/mL (0.0-7.9); POC - TROPONIN <0.05 ng/mL (<=0.05)
[2017-01-04 11:48] LABS: CHOLESTEROL 115 mg/dL (0-200); HDL CHOLESTEROL 67 mg/dL (35-95); LDL CHOLESTEROL 34 mg/dL (-130); LDL/HDL RATIO 1 RATIO (0-4); TRIGLYCERIDES 69 mg/dL (10-160)
[2017-01-04 14:48] LABS: INFLUENZA A NEG (NEG); INFLUENZA B NEG (NEG)
[2017-01-04 22:39] LABS: BUN/CREATININE RATIO 5.84; CALCIUM SERUM 7.4 mg/dL (8.4-10.2); CREATININE SERUM 5.3 mg/dL (0.6-1.4); GLOM FILT RATE Estimated 7.4 mL/min (>60); POTASSIUM 3.9 mmol/L (3.5-5.1)
[2017-01-05 05:18] LABS: BASOPHIL% 0.2 % (0-2.5); EOSINOPHIL% 0.1 % (0.0-7.0); HEMATOCRIT 34.6 % (35.0-45.0); HEMOGLOBIN 11.2 gm/dL (12.0-16.0); LYMPHOCYTE# 0.5 X10e3 (1.0-3.5); LYMPHOCYTE% 5.1 % (17.0-45.0); MEAN CELL VOLUME 95.3 FL (83-96); MEAN CORPUSCULAR HEMOGLOBIN 30.9 PG (28-34); MEAN CORPUSCULAR HGB CONC 32.4 g/dL (30-36); MEAN PLATELET VOLUME 7.2 FL (6.5-11.5); MONOCYTE# 0.1 X10e3 (0-1.0); MONOCYTE% 1.2 % (3.0-12.0); NEUTROPHIL% 93.4 % (40-75); PLATELET COUNT 269 X10e3 (140-420); RED BLOOD COUNT 3.63 X10e (3.90-5.30); RED CELL DISTRIBUTION WIDTH 14.4 % (11.0-15.5); WHITE BLOOD COUNT 9.6 X10e3 (4.0-10.5)
[2017-01-05 05:21] LABS: DIFF IND NO
[2017-01-05 06:45] LABS: BUN/CREATININE RATIO 6.53; CALCIUM SERUM 7.9 mg/dL (8.4-10.2); CREATININE SERUM 5.2 mg/dL (0.6-1.4); GLOM FILT RATE Estimated 7.6 mL/min (>60); POTASSIUM 4.4 mmol/L (3.5-5.1)
[2017-01-06 07:26] LABS: INR 1.2; PROTHROMBIN TIME (PATIENT) 12.9 SECONDS (10.0-11.7)
[2017-01-06 07:27] LABS: HEMATOCRIT 35.4 % (35.0-45.0); HEMOGLOBIN 11.5 gm/dL (12.0-16.0); MEAN CELL VOLUME 96.1 FL (83-96); MEAN CORPUSCULAR HEMOGLOBIN 31.1 PG (28-34); MEAN CORPUSCULAR HGB CONC 32.4 g/dL (30-36); MEAN PLATELET VOLUME 7.3 FL (6.5-11.5); RED BLOOD COUNT 3.68 X10e (3.90-5.30); RED CELL DISTRIBUTION WIDTH 14.5 % (11.0-15.5); WHITE BLOOD COUNT 11.2 X10e3 (4.0-10.5)
[2017-01-06 07:49] LABS: BUN/CREATININE RATIO 8.26; CALCIUM SERUM 7.7 mg/dL (8.4-10.2); GLOM FILT RATE Estimated 4.9 mL/min (>60)
[2017-01-06 07:50] LABS: CREATININE SERUM 7.5 mg/dL (0.6-1.4)
[2017-01-07 05:42] LABS: HEMATOCRIT 37.3 % (35.0-45.0); HEMOGLOBIN 12.2 gm/dL (12.0-16.0); MEAN CELL VOLUME 94.8 FL (83-96); MEAN CORPUSCULAR HEMOGLOBIN 31.1 PG (28-34); MEAN CORPUSCULAR HGB CONC 32.8 g/dL (30-36); MEAN PLATELET VOLUME 7.5 FL (6.5-11.5); RED BLOOD COUNT 3.94 X10e (3.90-5.30); RED CELL DISTRIBUTION WIDTH 14.2 % (11.0-15.5); WHITE BLOOD COUNT 10.9 X10e3 (4.0-10.5)
[2017-01-07 05:54] LABS: INR 1.9
[2017-01-07 06:02] LABS: PROTHROMBIN TIME (PATIENT) 20.7 SECONDS (10.0-11.7)
[2017-01-07 06:35] LABS: BUN/CREATININE RATIO 9.61; CALCIUM SERUM 7.9 mg/dL (8.4-10.2); CREATININE SERUM 5.2 mg/dL (0.6-1.4); GLOM FILT RATE Estimated 7.6 mL/min (>60); POTASSIUM 5.2 mmol/L (3.5-5.1)
[2017-01-07] MEDS ORDERED: LEVEMIR100 UNITS/ SUBQ (17:21)
[2017-01-07] MEDS ORDERED: COUMADIN1 MG PO (17:26)
[2017-01-07] MEDS ORDERED: DOXYCYCLINE HY100 M3 PO (17:26)
== END 2017-01-07 18:27 | disposition home or self-care (01) | DRG 291 ==
LOC: CED 16:24 → C5C 21:45 → CEDOF 21:45 → CED 22:14 → C5C 22:51 → CEDOF 22:51 → C5C 01-04 07:48
PROVIDERS: Emergency Medicine; Family Medicine; Nurse Practitioner
PROC: 5A1D60Z (ICD-10-PCS; principal; 2017-01-03)
DX: I13.2 Hypertensive heart and chronic kidney disease with heart failure and with stage 5 chronic kidney disease, or end stage renal disease (principal); N18.6 End stage renal disease; E11.22 Type 2 diabetes mellitus with diabetic chronic kidney disease; I50.33 Acute on chronic diastolic (congestive) heart failure; J20.9 Acute bronchitis, unspecified; D63.1 Anemia in chronic kidney disease; I48.91 Unspecified atrial fibrillation; Z99.2 Dependence on renal dialysis; E78.5 Hyperlipidemia, unspecified; H40.9 Unspecified glaucoma; Z79.4 Long term (current) use of insulin
CPT/HCPCS: 36415; 71010; 71275; 72146; 78452; 80048; 80061; 80076; 82553; 82947; 83880; 84443; 84484; 85025; 85027; 85610; 87340; 87804; 93005; 93017; 93306; 94640; 94760; 96374; 97161; 97165; 99285; A9500; G8978-GP; G8979-GP; G8980-GP; G8987-GO; G8988-GO; G8989-GO; J1650; J1815; J2405; J2785; J2920; Q9967

== ENCOUNTER → 2017-01-03 | Outpatient (CLI) | payer OTHER ==
[~2017-01-03] MED LIST: ACTOS; ADULT WAL-TUSS118 M1; ALPHAGAN P10 ML OP; AMLODIPINE BESY10 MG PO; AMOXICILLIN875 MG PO; CALCIUM ACETAT667 M1 PO; COLACE PO; COUMADIN1 MG PO; COZAAR100 MG PO; COZAAR25 MG PO; CRESTOR PO; DOXYCYCLINE HY100 M3 PO; FOSRENOL500 MG PO; FUROSEMIDE40 MG PO; GLUCOVANCE 5/501 TA1; HUMALOG100 UNIT/2 SUBQ; HYZAAR 100-12.51 TAB; IRON325 ( 65 ) PO; IRON325 ( 651 PO; JANUVIA; LANTUS100 U/ML; LANTUS100 U/ML SUBQ; LANTUS100 UNITS/ SUBQ; LASIX PO; LEVEMIR100 UNITS/ SUBQ; LIPITOR; LISINOPRIL PO; LISINOPRIL20 MG PO; LOPRESSOR PO; LOSARTAN POTAS100 MG PO; METOPROLOL SUCC25 MG PO; METOPROLOL TAR25 MG PO; NEBCIN1.2 GM IV; NORVASC10 MG PO; NOVOLOG100 U/M2 SUBQ; NOVOLOG100 UNITS/ SUBQ; OS-CAL 500500 MG PO; PRED FORTE1 ML OU; PREDNISONE10 MG PO; PROCRIT20000 U/ML IJ; REFRESH EYE DRO50 E1 OU; RENAL SOFTGEL1 MG PO; RENAVIT TABLET0.8 MG PO; RENVELA2.4 GM PO; RENVELA800 MG PO; SENSIPAR30 MG PO; SENSIPAR60 MG PO; SIMVASTATIN40 MG PO; SOD BICARBONATE PO; VANCOMYCIN HCL1 GM IV; XALATAN OD; ZYRTEC10 M2 PO
--- NOTE | ~2017-01-03 | CR63 ---
[facility] A Service of [facility] & [facility] RADIOLOGY TEXT RESULTS PATIENT: SHANDA HENSON LOCATION: [facility] : 43 UNIT #: [id number] AGE: [address]: Bakari Cook MD SEX: F ORDER DR: [id number] [facility] [address] [place], [place] [address] [id number] O MR#: [id number] Acc #: [id number] NAME: SHANDA HENSON : 1945 SEX: F STUDY DATE/TIME: 01/03/2017 13:28 UNIT: [facility] ROOM: STUDY DESCRIPTION: CR Chest 2 View Attending Physician: Bakari Cook M.D. Referring Physician: Bakari Cook M.D. Ordering Physician: Bakari Cook M.D. Primary Care Physician: Bakari Cook M.D. MEDICAL IMAGING REPORT This report is preliminary unless electronic signature is present EXAM PA and lateral chest radiograph. INDICATION Cough and congestion for 2 weeks. FINDINGS Comparison made to a prior exam from June 03, 2014. Patient does have some cardiomegaly and there may be some mild vascular congestion. There is a left-sided vascular stent which appears partially crimped at its more medial component but this is stable when compared to the prior studies. No pneumothorax or pleural effusion is seen. No acute infiltrates are identified. There is also an additional right axillary stent which is new when compared to the prior study. There is discogenic degenerative disease at the spine. Please note the lateral view is severely limited as the patient's arms are not raised. IMPRESSION Cardiomegaly and suspected mild vascular congestion. Similar findings were present in June of 2014. Dictated by... Misti Saab M.D. THIS IS AN ELECTRONICALLY VERIFIED REPORT Misti Saab M.D. at 01/03/2017 6:08 PM AFF/tmw TD: 01/03/2017 17:20 JOB #: [id number] [facility] A Service of [facility] & [facility] RADIOLOGY TEXT RESULTS PATIENT: SHANDA HENSON [id number] 43 UNIT #: [id number] AGE: [address]: Bakari Cook MD SEX: F ORDER DR: MEDICAL IMAGING REPORT Page 1 of 1 COPY
== END | disposition home or self-care (01) ==
LOC: CRAD 13:15
DX: R05 Cough (principal); I51.7 Cardiomegaly
CPT/HCPCS: 71020